=== PATIENT | female | born 2000 | race Caucasian/White ===

== ENCOUNTER 2023-06-09 15:11 | Outpatient (REF) | payer OTHER, SELFPAY ==
--- NOTE | ~2023-06-09 | MR_ITS ---
EXAMINATION: MRI left foot without contrast CLINICAL INFORMATION: Left foot pain patient reports history of fracture first digit September 2019. COMPARISON: None. TECHNIQUE: MRI of the left foot is performed without contrast and high field MRI scanner. FINDINGS: Bone/joints: First tarsometatarsal joint. There is bone marrow edema along the dorsal lateral aspect of the base of the first metatarsal with possible slight articular depression. There is adjacent bone marrow edema in the medial cuneiform on the proximal side of the joint. Findings suggestive of bone contusion stress reaction or osteochondral impaction fracture of the base of the first metatarsal with a concomitant bone contusion of the cuneiform. There is minimal edema in the surrounding soft tissues. No definite joint effusion. Remaining bone and joints are normal. Ligaments and capsular structures: Normal. Muscles and tendons normal. Neurovascular structures normal. Partially visualized plantar fascia normal. MR/MR foot LT wo con IMPRESSION: Abnormality of the base of the first metatarsal and medial cuneiform with an appearance most compatible with bone contusion, stress reaction or osteochondral impaction fracture of the base of the first metatarsal with concomitant bone contusion of the medial cuneiform.
== END 2023-06-09 15:12 | disposition home or self-care (01) ==
LOC: HO.MRI 15:11
PROVIDERS: Visit Provider Family Medicine Sports Medicine
DX: L08.9 Local infection of the skin and subcutaneous tissue, unspecified (principal); M79.672 Pain in left foot; M76.892 Other specified enthesopathies of left lower limb, excluding foot
CPT/HCPCS: 73718

== ENCOUNTER 2024-05-25 19:23 | Outpatient (REF) | payer OTHER, SELFPAY ==
--- NOTE | ~2024-05-25 | MR_ITS ---
EXAMINATION: MR KNEE WITHOUT CONTRAST, RIGHT CLINICAL INFORMATION: Pain. Patient reports injury March 2024. COMPARISON: None available. TECHNIQUE: MRI of the knee without contrast was performed using routine sequences on a high-field scanner. FINDINGS: MENISCI: Medial Meniscus: Intact . Lateral Meniscus: There is a vertical focus of increased signal within the lateral meniscus body 3 mm deep to the free edge on a single coronal image 18 series 12. On the axial images. This has the appearance of a radial tear. Possible additional irregularity along the tibial articular surface of the anterior horn. There is a fragment abutting the anterior margin of the junction of the anterior horn and anterior root having the appearance of a meniscal fragment. This measures 6 x 6 x 3 mm. See sagittal image 20 series 10 and coronal image 13 series 12. Findings most compatible with tearing of the lateral meniscus with a detached torn meniscal fragment in the anterior recess abutting the junction of the anterior horn and anterior root. LIGAMENTS: Cruciate: Intact. Collateral: Intact. EXTENSOR MECHANISM: Intact. ARTICULAR CARTILAGE/BONE: Patellofemoral Compartment: There are 2 adjacent superficial fissures in the medial facet of the patella. Trochlear cartilage is normal. Overall minimal patellofemoral arthrosis. Medial Compartment: Normal. Lateral Compartment: Normal. JOINT FLUID AND BURSAE: Normal. MR/MR knee RT wo con IMPRESSION: 1. Tear of the lateral meniscus with a detached/meniscal fragment in the anterior recess likely arising from the tear. 2. Minimal patellofemoral arthrosis. 3. There is a mild joint effusion. Electronically signed by: Yoni Felix MD 05/26/2024 10:45 AM [facility]
== END 2024-05-25 19:24 | disposition home or self-care (01) ==
LOC: HO.MRI 19:23
PROVIDERS: Visit Provider Student in an Organized Health Care Education/Training Program
DX: M25.561 Pain in right knee (principal)
CPT/HCPCS: 73721

== ENCOUNTER 2024-11-27 09:48 | Outpatient (REF) | payer OTHER, SELFPAY ==
--- NOTE | ~2024-11-27 | MR_ITS ---
CLINICAL HISTORY: N MR l left foot without gadolinium Comparison: 06/09/2023 Findings: Normal alignment without acute fracture. No marrow infiltration. No significant joint effusion. New mild cortical thickening of the medial aspect of the 4th metatarsal bony sequela of level injury. First tarsometatarsal joint: Bridging dorsomedial osteophytosis with an overall measurement of 5 x 4 mm, and relatively diffuse edematous changes. In its vicinity, there is new focal denudation (measuring up to 5 mm in width) of the 1st tarsometatarsal cartilage and [id number] subchondral edematous changes. On the prior exam, osseous and soft tissue contusion was seen at this level. Grade 1 sprain of the neighboring Lisfranc ligament. Mild dorsal midfoot/proximal forefoot edematous changes. Mild nonspecific edematous changes deep to the 5th MTP joint/5th proximal phalanx. IMPRESSION: 1. First tarsometatarsal joint: Bridging dorsomedial osteophytosis with relatively diffuse edematous changes. 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 Grade 1 sprain of the neighboring Lisfranc ligament. This document has been electronically signed by: Filomena Kirkpatrick MD on 11/27/2024 12:02:47
== END 2024-11-27 09:49 | disposition home or self-care (01) ==
LOC: HO.MRI 09:48
PROVIDERS: Visit Provider Student in an Organized Health Care Education/Training Program
DX: M79.672 Pain in left foot (principal)
CPT/HCPCS: 73718

== ENCOUNTER → 2024-11-27 09:54 | Outpatient (BNV) | payer OTHER, SELFPAY | PROVIDERS: Visit Provider Radiology Diagnostic Radiology | DX: M79.672 Pain in left foot (principal) | CPT/HCPCS: 73718 ==